=== PATIENT | female | born 2000 | race Two or more races ===

== ENCOUNTER 2018-01-20 12:20 | Inpatient (IN) | payer SELFPAY ==
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
[2018-01-20 12:52] LABS: PLATELET COUNT 275 10^3/uL (150-400)
[2018-01-20] MEDS ORDERED: HALOPERIDOL LACT 5 MG/ML INJ IM ONE (19:30)
[2018-01-20] MEDS ORDERED: HALOPERIDOL LACT 5 MG/ML INJ ONE (19:31)
[2018-01-20 22:21] VITALS: RESP 16
[2018-01-20] MEDS ORDERED: MAGNESIUM HYDROXIDE 30 ML UDCUP PO PRN (22:21)
[2018-01-20] MEDS ORDERED: MAG HYDROX/AL HYDROX/SIMETH 30 ML UDCUP PO PRN (22:21)
[2018-01-20] MEDS ORDERED: LORazepam 0.5 MG TAB PO PRN (22:21)
[2018-01-20] MEDS ORDERED: ACETAMINOPHEN 325 MG TAB PO PRN (22:21)
[2018-01-20] MEDS ORDERED: diphenhydrAMINE 25 MG CAP PO PRN (22:22)
[2018-01-21 07:10] VITALS: BP 116/57; PULSE 64; TEMP 97.7; O2SAT 98
--- NOTE | 2018-01-21 08:57 | GCON ---
[f rep st] CONSULTATION DATE OF CONSULTATION: 01/21/2018 REASON FOR CONSULTATION: I was asked by Dr. Breaux to see this patient in regard to her medical prob lems. HISTORY OF PRESENT ILLNESS: This is a 17-year-old female, who was admitted to [facility]. Ap parently, she was admitted through the emergency department after her boyfriend had broken up with he r. She became quite upset, yelling, screaming, scratched her arms, as well as her face and banged he r head against the wall. She is currently denying any significant pain around these injuries. She h as some pain around her head, but not an overall headache. PAST MEDICAL/SURGICAL HISTORY: 1. Tear duct surgery. 2. Mole removal. MEDICATIONS: control. ALLERGIES: No known drug allergies. FAMILY HISTORY: Mother had a DVT. SOCIAL HISTORY: She works at [employer] in the kitchen. She occasionally smokes tobacco but she is thinking about quitting. REVIEW OF SYSTEMS: Positive for runny nose. Otherwise, 10-point review of systems is conducted and is negative except per HPI. PHYSICAL EXAM: VITAL SIGNS: Blood pressure 116/57, heart rate 64, respiration rate 16, sat 98% on r oom air. Temperature is 36.5. GENERAL: The patient is a very pleasant female who is resting comfor tably in no acute distress. HEENT: She has a minor bruise on her forehead, minor excoriations above her left eye. There is no surrounding erythema or significant tenderness to palpation. CARDIOVASCU LAR: Regular rate and rhythm. No murmurs, rubs, or gallops. PULMONARY: Lungs clear to auscultatio n bilaterally. ABDOMEN: Soft, nontender, nondistended. SKIN: Exam shows her to have a very mild e xcoriation which has no surrounding redness, not fully through the skin on the left arm. : No Fol ey. NEUROLOGIC: Shows her to be alert and oriented x3. Cranial nerves 2-12 are intact. Her sensat ion and motor are intact in the upper and lower extremities. PSYCHIATRIC: Normal mood and affect. LABORATORY DATA: Her MCV is 81, otherwise CBC is normal. Bicarb is 21, glucose 109. She is now neg ative for marijuana. DATA: I reviewed her chart including Anila Kumar's emergency department note. IMPRESSION AND PLAN: A 17-year-old female, admitted to [facility]. 1. Excoriations: These are on the left side of her face as well as arm. There is no evidence of an y infection. I think these should heal nicely on their own. 2. Tachycardia: This was mildly present when she was admitted. This is likely anxiety. Thank you for involving Hospital Medicine in the care of this patient. We will sign off. Please re- consult if there are any additional questions or concerns. /[id number]/MODL
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
[2018-01-22] MEDS ORDERED: Norethindrone-E.Estradiol-Iron [Microgestin Fe 1-20 Tablet] 1 EACH PO SCH (09:00)
== END 2018-01-21 13:56 | disposition home or self-care (01) | DRG 882 ==
LOC: EEVIPCON 12:20 → BBEH 21:45
PROVIDERS: ADMIT Psychiatry & Neurology Behavioral Neurology & Neuropsychiatry; ATTEND Psychiatry & Neurology Psychiatry
DX: F43.25 Adjustment disorder with mixed disturbance of emotions and conduct (principal); F12.90 Cannabis use, unspecified, uncomplicated; Z73.9 Problem related to life management difficulty, unspecified; Z56.9 Unspecified problems related to employment; R00.0 Tachycardia, unspecified
CPT/HCPCS: 80305; J1630